=== PATIENT | female | born 1935 ===

== ENCOUNTER → 2018-12-10 18:24 | Outpatient (ROUT) | payer MEDICARE, BC, SELFPAY ==
[2018-12-10 18:44] LABS: Body Fluid Appearance HAZY; Body Fluid Clotted? NO CLOTS PRESENT; Body Fluid Color PINK
[2018-12-10 19:00] LABS: Body Fluid Red Blood Cells 38379 /uL; Body Fluid Tot Nucleated Cells 1094 /uL
[2018-12-10 19:36] LABS: Eosinophils Body Fluid 0 %; Mononuclear WBC Body Fluid 91 %; Polynuclear WBC Body Fluid 9 %
== END ==
PROVIDERS: Visit Provider Internal Medicine Rheumatology
DX: Z79.899 Other long term (current) drug therapy (principal); M06.4 Inflammatory polyarthropathy; M06.09 Rheumatoid arthritis without rheumatoid factor, multiple sites
CPT/HCPCS: 89051